=== PATIENT | female | born 1990 | race Caucasian/White ===

== ENCOUNTER 2021-06-23 03:00 | Emergency (ER) | payer BC, SELFPAY ==
[2021-06-23 03:02] VITALS: BP 117/66; PULSE 98; RESP 18; TEMP 36.2; O2SAT 100; BMI 29.4
[2021-06-23 03:18] LABS: Mucous, Urine 0 SEEN /hpf (<or=2+)
[2021-06-23 03:19] LABS: Color, Urine Yellow (Yellow); Glucose, Dipstick Normal (Normal); Ketone-Dipstick Negative (Negative); Leukocyte Esterase-Dipstick 500 /ul (Negative); Nitrite-Dipstick Negative (Negative); Occult Blood-Urine 250 /ul (Negative); Protein-Dipstick 30 mg/dl (Negative); Specific Gravity, Urine 1.025 (1.002-1.030); Urine Bilirubin Dipstick Negative (Negative); Urine Clarity Sl. Cloudy (Clear); Urine Urobilinogen Normal (Normal)
--- NOTE | 2021-06-23 03:20 | CT_ITS ---
STUDY: CT ABDOMEN AND PELVIS WITHOUT CONTRAST REASON FOR EXAM: Female, 30 years old. left flank pain RADIATION DOSAGE (If Supplied By Facility): CTDIvol = ( 6.46 ) mGy, DLP = ( 304.99 ) mGycm TECHNIQUE: Transaxial images were obtained from the dome of the diaphragm to the symphysis pubis without oral contrast, and without intravenous contrast. Sagittal and coronal images were reconstructed. Individualized dose optimization techniques were used for this CT. COMPARISON: None. LIMITATIONS: None.
[2021-06-23 03:21] LABS: Internal QC Validated? YES +Cl - CLEAR BKGD; Pregnancy, Urine Negative Negative
--- NOTE | 2021-06-23 03:21 | EDS_ITS ---
HPI History of Present Illness Chief Complaint: Flank Pain Informant: patient Narrative Narrative: Patient is a 30-year-old female with no significant past medical history presenting with left-sided flank pain. She states it started this evening. It is her left lower back and radiates around to her abdomen. States is constant in nature. She has some associated nausea and vomiting. She also has dysuria and frequency of urination. She notes she has had a migraine today so she did take 3 Excedrin Migraine at 930 p.m. Denies any history of kidney stones. Notes initially felt like she was getting a urinary tract infection. Denies any other complaints at this time. Surgical history is an umbilical hernia repair. [facility] Medical History Migraines Home Medications ibuprofen 600 mg PO Q6H PRN PRN #20 tab 06/23/21 [Rx Last Taken Unknown] levonorgestrel-ethinyl estrad [Vienva] 1 tab PO DAILY 06/23/21 [History Last Taken Unknown] ondansetron 4 mg PO Q6H PRN #14 tab 06/23/21 [Rx Last Taken Unknown] oxycodone-acetaminophen [Percocet] 1 tab PO Q6H PRN 3 Days #12 tab 06/23/21 [Rx Last Taken Unknown] tamsulosin [Flomax] 0.4 mg PO DAILY #7 cap 06/23/21 [Rx Last Taken Unknown] Allergy/AdvReac Type Severity Reaction Status Date / Time No Known Allergies Allergy Verified 06/23/21 03:08 Social History Smoking Status: Never smoker ROS ROS ED Constitutional Constitutional ED: Denies chills or fever(s) Eyes Eyes: Denies blurry vision ENT ENT ED: Denies rhinorrhea or sore throat Cardiovascular Cardiovascular: Denies chest pain Respiratory/Chest Respiratory/Chest: Denies cough or dyspnea Gastrointestinal Gastrointestinal: Reports abdominal pain, nausea and vomiting; Denies constipation or diarrhea Genitourinary Genitourinary ED: Reports dysuria, LMP (females 10-50) Details: Comment: (2 weeks ago) and urinary frequency; Denies hematuria Musculoskeletal Musculoskeletal: Reports back pain; Denies arthralgias or myalgias Integumentary Denies rash Neurologic Neurologic: Reports headache(s); Denies paresthesias or weakness Psychiatric Psychiatric: Denies depression EXAM Physical Exam Const Vital Signs: 06/23/21 03:02 Temperature 97.2 F L Temperature Source Temporal Pulse Rate 98 Respiratory Rate 18 Blood Pressure 117/66 Blood Pressure Mean 83 Pulse Ox 100 Oxygen Delivery Method Room Air Positive well nourished and well developed Constitutional Narrative: Mild distress secondary to pain General Appearance ED: well developed HEENT Reports moist mucous membranes Negative for trauma Eyes PERRL and EOMs intact bilaterally Neck supple and no JVD Chest Wall inspection of chest normal Resp normal respiratory effort and clear to auscultation bilaterally Cardio regular rate, regular rhythm and no murmurs GI non-distended Palpation: soft and tender LLQ; Negative for guarding or rebound tenderness present Back/Spine General Back: CVA tenderness left Extremity normal to inspection General Extremety ED: Negative for edema or tenderness General Extremity: Negative for edema Neuro oriented x3 Sensorium / Orientation: alert Motor Exam: Negative for general weakness Psych mental status grossly normal Skin no rashes or lesions noted and no wounds MDM MDM MDM Narrative Medical decision making narrative: Patient evaluated for left flank pain. She also has some mild dysuria and frequency of urination. Differential includes pyelonephritis as well as obstructing kidney stone. Is given IV fluids, morphine, Zofran and Toradol. Will obtain a CT of the abdomen pelvis for further evaluation. CBC and BMP are unremarkable. Urinalysis shows 500 leukoesterase with 5-10 red blood cells and 5-10 white blood cells, 0-5 squamous epithelial cells and 1+ bacteria. This is nonspecific. Urine culture is sent. Patient does have significant provement of her symptoms. She continues to have some mild pain in her left lower quadrant so she is given a second dose of morphine. CT of the abdomen pelvis does show an obstructing 6 mm calculus at the left UVJ, trace free fluid in the pelvis and incidental finding of 8 mm pulmonary nodule on the left lung. Patient is informed of all of these findings. Given that the stone is already at her UVJ I suspect it might pass. She is counseled that any stone over 5 mm does increase the risk of not passing and needing urology to intervene. She is given referral for Dr. Gerber, for follow-up as well as her primary care physician to follow-up with. She is discharged home with symptomatic treatment. She is given a work note for today. She is counseled on return precautions. Lab Data Labs: Laboratory Results - last 24 hr 06/23/21 06/23/21 06/23/21 03:05 03:05 03:10 WBC 7.4 RBC 4.20 Hgb 12.6 Hct 38.1 MCV 90.7 MCH 30.0 MCHC 33.1 RDW Std Deviation 45.2 H RDW Coeff of [place] 13.5 Plt Count 267 MPV 9.8 Immature Gran % (Auto) 0.400 Neut % (Auto) 44.3 L Lymph % (Auto) 45.5 H [place] % (Auto) 8.1 Eos % (Auto) 1.2 Baso % (Auto) 0.5 Absolute Neuts (auto) 3.3 Absolute Lymphs (auto) 3.35 Nucleated RBC % 0 Differential Comment SCANNED Sodium 139 Potassium 3.2 L Chloride 105 Carbon Dioxide 26.0 Anion Gap 8 BUN 8 Creatinine 0.86 Estim Creat Clear Calc 68.71 Est GFR (MDRD) Af Amer 100 Est GFR (MDRD) Non-Af 82 BUN/Creatinine Ratio 9.3 L Glucose 97 Calcium 9.6 Urine Color Yellow Urine Clarity Sl. Cloudy Urine pH 6.0 Ur Specific [place] 1.025 Urine Protein 30 H Urine Glucose (UA) Normal Urine Ketones Negative Urine Occult Blood 250 H Urine Nitrite Negative Urine Bilirubin Negative Urine Urobilinogen Normal Ur Leukocyte Esterase 500 H Urine RBC 5-10 SEEN Urine WBC 5-10 SEEN Ur Squamous Epith Cells 0-5 SEEN Urine Bacteria 1+ Hyaline Casts 0-5 SEEN Urine Mucus 0 SEEN Urine Test Negative Radiography Diagnostic Testing: Clinical Impression(s) from Imaging Studies Abdomen/Pelvis CT 06/23/21 03:20 IMPRESSION: 1. Mild left hydroureteronephrosis due to a 6 mm calculus at the left vesicoureteral junction. 2. Trace free fluid in the pelvis. 3. Left lower lobe subpleural 8 mm pulmonary nodule. *Fleischner Society Recommendations (Radiology 2005;237:395-400.) (Follow-up and management of nodules smaller than 8 mm detected incidentally at non-screening CT. Newly detected indeterminate nodule in persons 35 years of age or older.) Low risk patient: Minimal or absent history of smoking and of other known risk factors. <= 4mm: No followup needed >4-6mm: Follow-up CT at 12 months, if unchanged - no further followup >6-8mm: Initial Follow-up CT at 6-12 months, then at 18-24 months if no change >8mm: Follow-up CT at 3, 9, and 24 months; FDG PET scan; and or biopsy High risk patient: History of smoking or of other known risk factors. <= 4mm: Follow-up CT at 12 months, if unchanged - no further followup >4-6mm: Initial Follow-up CT at 6-12 months, then at 18-24 months if no change >6-8mm: Initial Follow-up CT at 3-6 months, then at 9-12 and 24 months if no change >8mm: Follow-up CT at 3, 9, and 24 months; FDG PET scan; and or biopsy Note: Non-solid (ground-glass) or partly solid nodules may require longer follow-up to Electronically Signed: Carlo Rolle MD at 4:07 EDT Reading Location ID and State: [address] [place] [address] Tel , Service support , Discharge Plan Triage Chief Complaint: Flank Pain ED Provider: Lety Tyson Dx/Rx/DC Orders Clinical Impression: Ureterolithiasis, Renal colic on left side, Incidental pulmonary nodule, greater than or equal to 8mm Instructions: ED Pulmonary Nodule, Solitary, ED Kidney Stone w/ Colic Prescriptions: New tamsulosin [Flomax] 0.4 mg capsule 0.4 mg PO DAILY Qty: 7 RF: 0 ibuprofen 600 mg tablet 600 mg PO Q6H PRN PRN (Reason: Pain Score 1-10/10) Qty: 20 RF: 0 ondansetron 4 mg tablet,disintegrating 4 mg PO Q6H PRN (Reason: nausea and vomiting) Qty: 14 RF: 0 oxycodone-acetaminophen [Percocet] 5-325 mg tablet 1 tab PO Q6H PRN (Reason: pain) 3 Days Qty: 12 RF: 0 No Action levonorgestrel-ethinyl estrad [Vienva] 0.1-20 mg-mcg Tablet 1 tab PO DAILY RF: 0 Primary Care Provider: Care Physician,No Primary Referrals: Daron Donahue MD [STAFF PHYSICIAN] - Julio Gerber MD [STAFF PHYSICIAN] - 1-2 Days if not improving Care Physician,No Primary [Primary Care Provider] - Disposition Disposition: Home, Self Care
[2021-06-23] MEDS: Ketorolac 15 MG/ML Vial IV (03:24)
[2021-06-23] MEDS: Morphine 4 MG/ML Syringe IV ×2 (03:24→04:45)
[2021-06-23] MEDS: Ondansetron 4 MG/2 ML Vial IV (03:24)
[2021-06-23 03:25] LABS: Bacteria 1+ /hpf (None Seen); Hyaline Cast 0-5 SEEN /lpf (0-5); Red Blood Cells-Urine 5-10 SEEN /hpf (0-5); Squamous Epithelial Cells - UA 0-5 SEEN /hpf (5-10); White Blood Cells 5-10 SEEN /hpf (0-5)
[2021-06-23 03:33] LABS: Absolute Lymphocyte Count 3.35 X10^3/uL (0.83-4.51); Absolute Neutrophil Count 3.3 X10^3/uL (2.0-7.7); Basophil# 0.04 X10^3/uL; Basophil% 0.5 % (0-1); Eosinophil# 0.09 X10^3/uL; Eosinophils% 1.2 % (0-5); Hematocrit 38.1 % (37-47); Hemoglobin 12.6 g/dL (12.0-15.0); Lymphocyte # 3.35 X10^3/ul (0.83-4.51); Lymphocyte % 45.5 % (19-41); Mean Corp Hgb Conc 33.1 g/dL (32-36); Mean Corpuscular Volume 90.7 fL (81-99); Mean Platelet Vol. 9.8 fl (6.2-12.0); Monocyte% 8.1 % (0-10); NRBC Flagged by Analyzer 0 % (0-5); Neutrophil # 3.26 X10^3/uL (2.7-7.7); Neutrophil % 44.3 % (47-70); POSITIVE MORPHOLOGY YES; Platelet Count 267 K/mm3 (150-450); RBC Distribution Width CV 13.5 % (11.6-14.6); RBC Distribution Width SD 45.2 fl (35.1-43.9); White Blood Count 7.4 K/mm3 (4.4-11.0)
[2021-06-23 03:34] LABS: Differential Indicated SCAN CRITERIA MET
[2021-06-23] MEDS: 0.9% Normal Saline 1,000 ML 250 ML IV (03:38)
[2021-06-23 03:45] LABS: Differential Comment SCANNED
[2021-06-23 04:17] LABS: Anion Gap 8 (5-15); BUN 8 mg/dL (7-18); BUN/Creat Ratio 9.3 RATIO (10-20); Calcium,Total 9.6 mg/dL (8.5-10.1); Chloride 105 mmol/L (98-107); Creatinine, Serum 0.86 mg/dL (0.55-1.02); EST Glomerular Filtration Rate 82 mL/min (>60); Est Glom Filt Rate - Afr Amer 100 mL/min (>60); Estimated Creatinine Clearance 68.71 ml/min; Glucose 97 mg/dL (74-106); Potassium 3.2 mmol/L (3.5-5.1); Sodium Level 139 mmol/L (136-145)
[2021-06-23 05:01] VITALS: BP 101/62; PULSE 69
== END 2021-06-23 05:10 | disposition home or self-care (01) ==
PROVIDERS: Emergency Provider Emergency Medicine; Visit Provider Emergency Medicine
DX: N13.2 Hydronephrosis with renal and ureteral calculous obstruction (principal); R91.1 Solitary pulmonary nodule; R30.0 Dysuria; R10.9 Unspecified abdominal pain; R11.2 Nausea with vomiting, unspecified; R35.0 Frequency of micturition
CPT/HCPCS: 74176; 80048; 81001; 81025; 85025; 99283; J7030; A4216; J2405

== ENCOUNTER → 2021-12-09 | Outpatient (CLI) | payer BC, SELFPAY ==
--- NOTE | 2021-12-09 17:45 | CT_ITS ---
STUDY: CT CHEST WITHOUT CONTRAST REASON FOR EXAM: Female, 31 years old. PULMONARY NODULE RADIATION DOSAGE (If Supplied By Facility): CTDIvol = ( 7.86 ) mGy, DLP = ( 271.10 ) mGycm TECHNIQUE: Transaxial imaging was performed without the administration of intravenous contrast material. Multiplanar coronal and sagittal images were reformatted. Individualized dose optimization techniques were used for this CT. COMPARISON: No relevant priors. FINDINGS: CHEST There are 0.3 and 0.4 cm benign appearing wedge-shaped nodular density in the right lower lung. There are 0.3 cm similar appearing densities in the left lower lung. No dominant mass. There is no demonstrated pleural abnormality. Normal heart and pericardium. There are no calcifications of the coronary arteries. Normal mediastinum. Normal hilar regions. Normal unenhanced pulmonary arteries. Normal aorta arch and descending thoracic aorta. Normal osseous structures. There is no demonstrated abnormality of the visualized upper abdomen. CT/Chest without Contrast IMPRESSION: Benign appearing wedge-shaped nodular densities in the lower lungs. No dominant mass. Electronically Signed: Williams Flores MD at 23:10 EDT ,
== END | disposition home or self-care (01) ==
PROVIDERS: PCP Nurse Practitioner Family; Visit Provider Nurse Practitioner Family
DX: R91.1 Solitary pulmonary nodule (principal)
CPT/HCPCS: 71250